=== PATIENT | male | born 1995 | race Caucasian/White ===

== ENCOUNTER 2022-06-13 18:40 | Emergency (ER) | payer OTHER, SELFPAY ==
[2022-06-13 18:51] VITALS: BP 145/92; PULSE 65; RESP 16; TEMP 36.9; O2SAT 99
--- NOTE | 2022-06-13 18:59 | ED.URI ---
HPI - URI/Sore Throat General Chief Complaint: Upper Respiratory Infection Stated Complaint: cough, sinus drainage Time Seen by Provider: 06/13/22 19:00 Source: patient and RN notes reviewed Mode of arrival: ambulatory Limitations: no limitations History of Present Illness HPI Narrative: 26 y/o male with hx diabetes presented for c/o cough for one week. States it is worse at night. Endorses mild nasal congestion and post nasal drainage. Taking Mucinex or Zyrtec for symptoms. Denies sob, wheezing, fever or chills. MD elicited complaint: cough Related Data Home Medications Medication Instructions Recorded Confirmed insulin aspart (niacinamide) 06/13/22 (U-100) 100 unit/mL subcutaneous solution (Fiasp U-100 Insulin) insulin pump cartridge,automated 06/13/22 06/13/22 dose,BT with controller subcutaneous (Omnipod 5 G6 Intro Kit (Gen 5) subcutaneous cartridge with controller) Allergies Allergy/AdvReac Type Severity Reaction Status Date / Time No Known Drug Allergies Allergy Mild Unverified 08/08/16 13:34 Review of Systems Review of Systems: CONSTITUTIONAL:denies malaise, chills, sweats, fever EYES: Denies visual changes, redness, or discharge ENT: per HPI CARDIOVASCULAR: Denies chest pain, palpitations, edema RESPIRATORY: Reports cough, post nasal drainage. Denies dyspnea GASTROINTESTINAL: Denies abdominal pain, nausea, vomiting, diarrhea SKIN: Denies rash MUSCULOSKELETAL: denies myalgia NEUROLOGIC: Denies headache PMFSH Past Medical History Medical History Type 1 diabetes Family History Family History Father Family history of thyroid disease Hypertension Mother Family history of thyroid disease Social History Social History Smoking status: Never smoker Alcohol intake: never Exam Narrative: GENERAL: well-appearing EYES: conjunctivae clear ENT: Mucous membranes moist. TMs pearly omer with light reflex bilaterally; no tragal tenderness. Oropharynx erythematous without lesions or exudate CHEST: Clear to auscultation, breath sounds equal. HEART: Regular rate and rhythm. SKIN: Warm, dry, no rash. NEURO: Alert and oriented x3. Course Course Emergency Course: Patient is aware of diagnosis, understands and agrees to treatment plan. Anticipatory guidance given. Patient agrees to follow-up as directed and is aware of reasons to seek care at the emergency department. Portions of this record may have been created with voice recognition software Level of Care: Express Care Visit Vital Signs Vital signs: Vital Signs Temperature 98.5 F 06/13/22 18:51 Pulse Rate 65 06/13/22 18:51 Respiratory Rate 16 06/13/22 18:51 Blood Pressure 145/92 H 06/13/22 18:51 Pulse Oximetry 99 06/13/22 18:51 Temperature 98.5 F 06/13/22 18:51 Pulse Rate 65 06/13/22 18:51 Respiratory Rate 16 06/13/22 18:51 Blood Pressure 145/92 H 06/13/22 18:51 Pulse Oximetry 99 06/13/22 18:51 reviewed MDM - URI/Sore Throat MDM Narrative Medical decision making narrative: Advised supportive measures and signs/symptoms to go to the ER. Pt is appropriate for outpt treatment and f/u. Differential Diagnosis Differential diagnosis: Likely upper respiratory infection, sinusitis and viral infection Discharge Plan Discharge Clinical Impression: Upper respiratory infection Patient Disposition: Home, Self-Care Condition: Stable Instructions: Sinusitis (ED) Additional Instructions: Recommend Flonase spray, saline spray, and Zyrtec (or Claritin/Mercedes) for sinus congestion over the counter sugar free Cough syrup as needed; it may cause drowsiness, avoid driving or take it at night time. Tylenol 1000mg every 8 hours as needed for pain Symptomatic treatment includes: rest, push fluids, and increase hu
== END 2022-06-13 19:12 | disposition home or self-care (01) ==
PROVIDERS: Emergency Provider Nurse Practitioner Family; PCP Family Medicine
DX: J06.9 Acute upper respiratory infection, unspecified (principal); E10.9 Type 1 diabetes mellitus without complications
CPT/HCPCS: 99211; G0463

== ENCOUNTER 2022-06-24 19:02 | Emergency (ER) | payer OTHER, SELFPAY ==
[2022-06-24 19:17] VITALS: BP 131/97; PULSE 90; RESP 16; TEMP 37.9; O2SAT 99
--- NOTE | 2022-06-24 19:28 | ED.URI ---
HPI - URI/Sore Throat General Chief Complaint: Upper Respiratory Infection Stated Complaint: FEVER/HEADACHE/CONGESITON/BODY ACHES Time Seen by Provider: 06/24/22 19:28 Source: patient Mode of arrival: ambulatory Limitations: no limitations History of Present Illness HPI Narrative: 26-year-old male presents with complaint of fatigue, body aches, fever, and congestion starting today. Reports he has had a cough since June 06. Denies chest pain and shortness of breath. States when he began to feel worse today he was concerned that he may have pneumonia. No history of pneumonia. 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 All systems reviewed and negative except as noted above. Related Data Home Medications Medication Instructions Recorded Confirmed insulin pump cartridge,automated 06/13/22 06/13/22 dose,BT with controller subcutaneous (Omnipod 5 G6 Intro Kit (Gen 5) subcutaneous cartridge with controller) insulin aspart (niacinamide) See Rx Instructions .Route .COMPLEX 06/24/22 06/24/22 (U-100) 100 unit/mL subcutaneous solution (Fiasp U-100 Insulin) Allergies Allergy/AdvReac Type Severity Reaction Status Date / Time No Known Allergies Allergy Verified 06/24/22 19:16 Review of Systems Review of Systems: CONSTITUTIONAL: Reports fever, chills, or sweats. EYES: Denies visual changes, redness, or discharge. ENT: Reports rhinorrhea, congestion, sore throat. Denies otalgia. CARDIOVASCULAR: Denies chest pain, palpitations, or edema. RESPIRATORY: Reports cough. Denies dyspnea. GASTROINTESTINAL: Denies abdominal pain, nausea, vomiting, or diarrhea. GENITOURINARY: Denies dysuria or hematuria. SKIN: Denies rash or itching. MUSCULOSKELETAL: Denies back pain, joint pain, or myalgia. NEUROLOGIC: Denies headache, numbness, or weakness. PSYCHIATRIC: Denies anxiety or depression. All other systems reviewed are negative, except as documented in HPI. [facility] Past Medical History Medical History Type 1 diabetes Family History Family History Father Family history of thyroid disease Hypertension Mother Family history of thyroid disease Social History Social History (Reviewed 06/13/22 @ 19:24 by ROLANDO Talamantes Smoking status: Never smoker Alcohol intake: never Comments At time of signature, agree with nursing past medical, surgical, social and family history. There is no relevant family history pertinent to the presenting complaint. Exam Narrative: GENERAL: This is a well-nourished, well-developed patient, in no apparent distress. HEAD: normocephalic, atraumatic. EYES: PERRL. Sclera clear/white. Vision is grossly intact. EARS: External ears normal, auditory canals clear and without drainage, TMs normal without perforation. Hearing grossly intact. NOSE: External nose normal with clear nasal drainage. THROAT: Mucous membranes moist, erythema posterior pharynx with clear postnasal drainage. NECK: Neck supple, non-tender without lymphadenopathy, masses or thyromegaly. CARDIOVASCULAR: Regular rate and rhythm without murmurs, gallops, or rubs. RESPIRATORY: Clear to auscultation. Breath sounds equal bilaterally. No wheezes, rales, or rhonchi. SKIN: warm, Dry, intact with no suspicious lesions or rash, good texture and turgor. NEURO: awake, alert, and oriented to person, place and time. There were no obvious focal neurologic abnormalities. EXTREMITIES: No joint tenderness, effusion, or edema noted. Course Course Level of Care: Express Care Visit Vital Signs Vital signs: Vital Signs Temperature 37.9 C H 06/24/22 19:17 Pulse Rate 90 06/24/22 19:17 Respiratory Rate 16 06/24/22 19:17 Blood Pressure 131/97 H 06/24/22 19:17 Pulse Oximetry 99 06/24/22 19:17 Temperature 37.9 C H 06/24/22 19:17 Pulse Rate 90 06/24/22 19:17 Re
== END 2022-06-24 19:40 | disposition home or self-care (01) ==
PROVIDERS: Emergency Provider Nurse Practitioner Family; PCP Family Medicine
DX: J10.1 Influenza due to other identified influenza virus with other respiratory manifestations (principal); J40 Bronchitis, not specified as acute or chronic; E10.9 Type 1 diabetes mellitus without complications; Z96.41 Presence of insulin pump (external) (internal)
CPT/HCPCS: 87804; 99213; G0463

== ENCOUNTER 2022-10-06 12:36 | Emergency (ER) | payer OTHER, SELFPAY ==
--- NOTE | 2022-10-06 12:42 | ED.URI ---
HPI - URI/Sore Throat General Chief Complaint: Ear Stated Complaint: COUGH/HEAD PRESSURE/L EAR Time Seen by Provider: 10/06/22 12:53 Source: patient and RN notes reviewed Mode of arrival: ambulatory Limitations: no limitations History of Present Illness HPI Narrative: 26-year-old male presents concern for cough, sinus pressure and left ear pain. Reports several days of symptoms, ear pain started most recently. He reports he taking Mucinex DM and Flonase. MD elicited complaint: cough Related Data Home Medications Medication Instructions Recorded Confirmed insulin pump cartridge,automated 06/13/22 06/13/22 dose,BT with controller subcutaneous (Omnipod 5 G6 Intro Kit (Gen 5) subcutaneous cartridge with controller) insulin aspart (niacinamide) See Rx Instructions .Route .COMPLEX 06/24/22 10/06/22 (U-100) 100 unit/mL subcutaneous solution (Fiasp U-100 Insulin) Allergies Allergy/AdvReac Type Severity Reaction Status Date / Time No Known Allergies Allergy Verified 10/06/22 12:39 Review of Systems Review of Systems: CONSTITUTIONAL: Denies malaise, chills, sweats, or fever. EYES: Denies visual changes, redness, or discharge. ENT: Reports rhinorrhea, congestion, ear pain. Denies sinus pain, otalgia CARDIOVASCULAR: Denies chest pain, palpitations, or edema. RESPIRATORY: Reports cough. Denies dyspnea. GASTROINTESTINAL: Denies abdominal pain, nausea, vomiting, diarrhea SKIN: Denies rash or itching. MUSCULOSKELETAL: Denies myalgia. NEUROLOGIC: Denies headache. All systems reviewed & are unremarkable except as noted in HPI and below PMFSH Past Medical History Medical History Type 1 diabetes Family History Family History Father Family history of thyroid disease Hypertension Mother Family history of thyroid disease Social History Social History Smoking status: Never smoker Alcohol intake: never Comments At time of signature, agree with nursing past medical, surgical, social and family history. There is no relevant family history pertinent to the presenting complaint Exam Narrative: GENERAL: Well-appearing, well-nourished, and in no acute distress. HEAD: Normocephalic EYES: PERRLA, conjunctivae clear ENT: Nares clear, turbinates edematous and erythematous, clear discharge. Mucous membranes moist. Right tM pearly omer with dull light reflex, left TM erythematous and bulging; no tragal tenderness. Oropharynx not erythematous without lesions. Tonsils not enlarged and without exudate, no drooling, no hoarseness, no trismus, uvula midline. NECK: Supple. No lymphadenopathy CHEST: Clear to auscultation, breath sounds equal. No wheezing, rhonchi, rales, or stridor. No respiratory distress, speaks in full sentences. HEART: Regular rate and rhythm. No murmur heard. SKIN: Warm, dry, no rash. NEURO: Alert and oriented x3. PSYCH: Normal mood and affect Course Course Emergency Course: Patient is aware of diagnosis, understands and agrees to treatment plan. Anticipatory guidance given. Patient agrees to follow-up as directed and is aware of reasons to seek care at the emergency department. Portions of this record may have been created with voice recognition software Level of Care: Express Care Visit Vital Signs Vital signs: Reviewed. MDM - URI/Sore Throat MDM Narrative Medical decision making narrative: Differential diagnosis considered: Buenrostro virus, strep pharyngitis, allergic rhinitis, upper respiratory tract infection, sinusitis, rhinosinusitis, nasopharyngitis. viral pharyngitis, otitis media, otitis externa, pneumonia, bronchitis, viral cough syndrome, viral syndrome, and influenza. Exam findings show no acute concerns or changes; patient is non-toxic appearing and is in no distress. Patient is appropriate for outpatient t
[2022-10-06 12:43] VITALS: BP 144/88; PULSE 71; RESP 16; TEMP 36.9; O2SAT 99
== END 2022-10-06 13:00 | disposition home or self-care (01) ==
PROVIDERS: Emergency Provider Nurse Practitioner; PCP Family Medicine
DX: H66.92 Otitis media, unspecified, left ear (principal); E10.9 Type 1 diabetes mellitus without complications
CPT/HCPCS: 99213; G0463

== ENCOUNTER 2025-04-05 13:34 | Outpatient (CLI) | payer OTHER, SELFPAY ==
--- OUTSIDE RECORDS SUMMARY | 2025-04-05 13:46 | XMS_ITS | Clinical Summary ---
Author Organization [facility] Address [address] [place] [address] Care Team Providers Care Logistics Solution Manager Name Role Phone Keo Mcmullen MD Primary Care Provider [phone] Allergies No known active allergies Medications insulin syringe-needle U-100 1 mL 31 gauge x 5/16 syringe Use to administer insulin 4 to 6 times daily 05/24/20 12 Active lancets misc Use as directed to test blood sugars 200 each 09/26/19 20 Active acetone, urine, test strip Use as direct when blood sugar > 250 mg/dl 50 strip 05/01/20 22 Active Afrezza 4 unit/8 unit/ 12 unit (60) cartridge, w/inhalation deviceIndication s:Type 1 diabetes mellitus without complication (HCC) INHALE 16 UNITS BEFORE MEALS, 4 UNITS 2 HOURS AFTER MEALS NEEDED TO CORRECT ELEVATED BLOOD SUGAR MORE THAN 200. TOTAL DAILY DOSE 60 UNITS 720 each 12/27/19 24 Active glucagon (BAQSIMI) 3 mg/actuation spray,non-aeroso lIndications:Typ e 1 diabetes mellitus without complication (HCC) Administer 1 spray (3 mg total) into one nostril daily as needed (as directed for severe low) 2 each 04/10/20 24 Active insulin regular human (Afrezza) 8 unit cartridge, w/inhalation device 8 units 3 times a day with meals . Pt will need 3 boxes of 90 270 each 3 10/09/19 25 Active FreeStyle Test stripIndications :Type 1 diabetes mellitus,Type 1 diabetes mellitus with complication (HCC) TEST BLOOD GLUCOSE FOUR TIMES A DAY 400 strip 2 11/18/19 25 Active insulin regular human (Afrezza) 4 unit cartridge, w/inhalation deviceIndication s:Type 1 diabetes mellitus with complication (HCC) Inhale up to 12 units 3 times a day with meals tdd 36 units. Pt will need 9 boxes of 90 (810 cartridges) 810 each 2 01/13/20 25 Active blood-glucose sensor (Dexcom G7 Sensor) deviceIndication s:Type 1 diabetes mellitus without complication (HCC) Will use 3 sensors per month to check blood sugar continuously. 9 each 01/16/20 25 Active TRESIBA 100 unit/mL (3 mL) pen for injection Inject 22 units once per day. 9 mL 3 02/08/20 25 Active insulin glargine (LANTUS) 100 unit/mL vial for injection Inject 24 Units under the skin nightly Backup insulin for pump failure 10 mL 1 06/24/20 21 023 Discontinued Active Problems Problem Noted Date Diagnosed Date Insulin pump in place 09/04/2022 Vitamin B 12 deficiency 02/15/2019 Type 1 diabetes mellitus 05/22/2009 Encounters Date Type Department Care Team Description 03/19/2025 Orders Only [facility] Medicine Endocrinology Metabolism and Lipid [address] [place] [address] [place] [address] Laurie Price, SANJU Type 1 diabetes mellitus without complication (HCC) (Primary Dx) 03/15/2025 Orders Only [facility] Medicine Endocrinology Metabolism and Lipid [address] [place] [address] [place] [address] Mercy Jean MD Type 1 diabetes mellitus without complication (HCC) (Primary Dx) 03/13/2025 Orders Only [facility] Medicine Endocrinology Metabolism and Lipid [address] [place] [address] [place] [address] Mercy Jean MD 03/05/2025 9:00 AM CDT Office Visit [facility] Medicine Endocrinology Metabolism and Lipid [address] [facility] [address] [place] [address] [place] [address] Mercy Jean MD Type 1 diabetes mellitus without complication (HCC) (Primary Dx); Vitamin D deficiency; Elevated blood pressure reading 02/07/2025 Telephone [facility] Endocrinology Metabolism and Lipid [address] [place] [address] Krystal Best RMA from Last 3 Months Immunizations Immunization Administration Dates Next Due Influenza, Unspecified 05/16/2020 Surgical History Surgery Date Site/Laterality Comments 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 Medical History Medical History Date Comments Diabetes mellitus type I (HCC) Family History Medical History Relation Name Comments Hypertension Father Thyroid disease Father Diabetes Maternal Grandfather Stroke Maternal Grandfather Diabetes Maternal Grandmother Hypertension Mother Thyroid disease Mother Relation Name Status Comments Father Maternal Grandfather Maternal Grandmother Mother Social History Tobacco Use Types Packs/Day Years Used Date Smoking Tobacco: Never Smokeless Tobacco: Never Sex and Gender Information Value Date Recorded Sex Assigned at Not on file Legal Sex Male 2:45 AM [employer] Gender Identity Not on file Sexual Orientation Not on file Occupation Industry Job Start Date Job End Date [employer] Not on file Not on file No t on file Obstetrics History Last Filed Vital Signs Vital Sign Reading Time Taken Comments Blood Pressure 154/88 03/05/2025 8:59 AM CDT Pulse 58 03/05/2025 8:59 AM CDT Temperature 36.8 C (98.3 F) 03/05/2025 8:59 AM CDT Respiratory Rate - - Oxygen Saturation 98% 06/12/2016 9:45 PM CDT Inhaled Oxygen Concentration - - Weight 87.7 kg (193 lb 6.4 oz) 03/05/2025 8:59 A M CDT Height 177.8 cm (5' 10) 03/05/2025 8:59 AM CDT Body Mass Index 27.75 03/05/2025 8:59 AM CDT Plan of Treatment Health Maintenance Due Date Last Done Comments Depression Screening 1997 Hepatitis C Screening 1997 Dilated Eye Exam 12/16/2007 DTaP/Tdap/Td Vaccine (1 - Tdap) 2008 Varicella Vaccines (1 of 2 - 13+ 2-dose series) 2010 Hepatitis B Screening 12/16/2015 Regular Well Visit/Exam 18-64 12/16/2015 Pneumococcal vaccine <65 (1 of 2 - PCV) 2016 HPV Vaccines (1 - 3-dose SCD M series) 2024 Lipid Panel 04/10/2025 04/10/2024, 11/15, 06/18/2021, Additional history exists TSH Level 04/10/2025 04/10/2024, 11/15, 06/18/2021, Additional history exists Influenza Vaccine (#1) 2025 05/16/2020 Hemoglobin A1C 09/05/2025 03/05/2025, 03/0 10/2024, 04/10/2024, Additional history exists Albumin Creatinine Ratio, Urine 10/16/2025 10/16/2024, 04/10/2024, 12/08/2022, Additional history exists Foot Exam 10/16/2025 10/16/2024 eGFR 10/16/2025 10/16/2024, 03/17, 12/08/2022, Additional history exists Procedures Procedure Name Priority Date/Time Associated Diagnosis Comments POCT HEMOGLOBIN A1C Routine 03/05/2025 9 :06 AM CDT Type 1 diabetes mellitus without complication (HCC) POCT GLUCOSE 34384 Routine 03/05/2025 9: 05 AM CDT Type 1 diabetes mellitus without complication (HCC) COMPREHENSIVE METABOLIC PANEL Routine 10/16/2024 3:38 PM [employer] Type 1 diabetes mellitus without complication (HCC) Vitamin B 12 deficiency Vitamin D deficiency ALBUMIN CREATININE RATIO, URINE Routine 10/16/2024 3:38 PM [employer] Type 1 diabetes mellitus without complication (HCC) Vitamin B 12 deficiency Vitamin D deficiency LIPID PANEL Routine 04/10/2024 12:26 PM CDT Type 1 diabetes mellitus without complication (HCC) Vitamin B 12 deficiency THYROID FUNCTION CASCADE Routine 04/10/2024 12:26 PM CDT Type 1 diabetes mellitus without complication (HCC) Vitamin B 12 deficiency from Last 3 Months or Most Recently Relevant to Health Maintenance Results * (ABNORMAL) POCT hemoglobin A1c (03/05/2025 9:06 AM CDT) Pathologist [facility] Hemoglobin A1C, POC 7.1(A) 4.0 - 5.6 % Blood 03/05/2025 9:06 AM CDT us Mercy Jean MD POINT OF CARE TEST ORDERAB LES Final Result * POCT glucose (03/05/2025 9:05 AM CDT) Pathologist [facility] Glucose Blood, POC 66 Normal Fasting 70 - 100, Random <200 mg/dL Blood 03/05/2025 9:05 AM CDT us Mercy Jean MD POINT OF CARE TEST ORDERAB LES Final Result * Albumin Creatinine Ratio, Urine (10/16/2024 3:38 PM [employer]) [facility] Albumin Ur <12.0 mg/L Comment: Interpretive Data No reference range established. Current interpretive data was last revised 2018. Creatinine Ur 79.5 mg/dL [facility] Comment: Interpretive Data No reference range established. Current interpretive data was last revised 2018. Albumin Creatinine Ratio, Ur <15 1 - 29 mg/g [facility] Urine 10/16/2024 3:38 PM [employer] 10/16/2024 7:18 PM [employer] us Mercy Jean MD LAB URINE ORDERABLES Final Result [facility] Department [place] [address] * (ABNORMAL) Comprehensive metabolic panel (10/16/2024 3:38 PM [employer]) [facility] Total Protein 7.5 6.1 - 8.4 g/dL [facility] Albumin 4.5 3.5 - 5.2 g/dL [facility] Calcium 9.4 8.6 - 10.3 mg/dL [facility] BUN 16 7 - 23 mg/dL [facility] Total Bilirubin 0.79 0.20 - 1.40 mg/dL [facility] Alk Phos, Total 99 35 - 129 IU/L [facility] AST (SGOT) 31 11 - 47 IU/L [facility] ALT (SGPT) 20 6 - 53 IU/L [facility] Creatinine 1.13 0.70 - 1.30 mg/dL [facility] Sodium 138 135 - 145 mmol/L [facility] Potassium INTERFERENCE - HEMOLYSIS 3.3 - 5.1 mmol/L [facility] Chloride 100 95 - 107 mmol/L [facility] CO2 Content 28 21 - 29 mmol/L [facility] Glucose 119(H) 64 - 99 mg/dL [facility] Comment: NONFASTING GLUCOSE RANGE = 64-199 mg/dL FASTING GLUCOSE 64 - 99 = NORMAL FASTING GLUCOSE 100 - 125 = IMPAIRED FASTING GLUCOSE FASTING GLUCOSE >=126 = PROVISIONAL DIAGNOSIS OF DIABETES eGFR >90.0 >60.0 mL/min/1 .73 m2 [facility] Blood 10/16/2024 3:38 PM [employer] 10/16/2024 4:16 PM [employer] Narrative [facility] - 10/16/2024 4:51 PM [employer] Specimen Hemolyzed us Mercy Jean MD LAB BLOOD ORDERABLES Final Result [facility] * Thyroid Function [place] (04/10/2024 12:26 PM CDT) TSH 0.540 0.450 - 4.500 uIU/mL [facility] - 01 Comment: No apparent thyroid disorder. Additional testing not indicated. In rare instances, Secondary Hypothyroidism as well as Subclinical Hypothyroidism have been reported in some patients with normal TSH values. Blood 04/10/2024 12:2 6 PM CDT 04/10/2024 Narrative [facility] - 04/11/2024 9:12 AM CDT Performed at: [facility] [id number] Military Technology Manager: Twin Marie PhD, Phone: [phone] Mercy Jean MD LAB BLOOD ORDERABLES Final Result Performing Organization Address [facility] [employer] de Phone Number [facility] - * (ABNORMAL) Lipid panel (04/10/2024 12:26 PM CDT) [facility] Cholesterol 181 100 - 199 mg/dL [facility] - 01 Triglycerides 80 0 - 149 mg/dL [facility] - 01 HDL Cholesterol 52 >39 mg/dL [facility] - 01 VLDL 15 5 - 40 mg/dL [facility] - 01 LDL, calculated 114(H) 0 - 99 mg/dL [facility] - 01 Blood 04/10/2024 12:2 6 PM CDT 04/10/2024 Narrative [facility] - 04/11/2024 8:17 AM CDT Performed at: [address] [id number] Military Technology Manager: Twin Marie PhD, Phone: [phone] Mercy Jean MD LAB BLOOD ORDERABLES Final Result Performing Organization Address [facility] Co de Phone Number [facility] - from Last 3 Months or Most Recently Relevant to Health Maintenance Insurance [employer] H[employer] [facility] CHOICE PLUS Care Teams Logistics Solution Manager Relationship Specialty Start Date End Date Keo Mcumllen MD PCP - General 12/24/16
--- OUTSIDE RECORDS SUMMARY | 2025-04-05 13:46 | XMS_ITS | Clinical Summary ---
Author Organization [facility] Address [address] [place] [id number] Care Team Providers Care Marine Extension Agent Name Role Phone Unavailable Primary Care Provider Unavailabl e Medications insulin lispro (HUMALOG) 100 UNIT/ML injection (VIAL)Indication s:Diabetes (CMS/HCC HHS/HCC) Use up to 80 units per pump 2 vial 08/25/2018 Active Social History Tobacco Use Types Packs/Day Years Used Date Smoking Tobacco: Never Assessed Sex and Gender Information Value Date Recorded Sex Assigned at Male 11/06/2024 12:27 PM CDT Legal Sex Male 9:13 PM CDT Gender Identity Not on file Sexual Orientation Not on file Last Filed Vital Signs Vital Sign Reading Time Taken Comments Blood Pressure 124/68 11/15/2017 10:06 AM CDT Pulse 95 11/15/2017 10:05 AM CDT Temperature - - Respiratory Rate - - Oxygen Saturation - - Inhaled Oxygen Concentration - - Weight 82.6 kg (182 lb 2.1 oz) 11/15/2017 10:05 AM CDT Height 177.8 cm (5' 10) 11/15/2017 10:05 AM CDT Body Mass Index 26.13 11/15/2017 10:05 AM CDT Plan of Treatment Health Maintenance Due Date Last Done Comments Annual Physical 2000 Hepatitis C 12/16/2015 DTaP, Tdap and Td Vaccines ( 1 - Tdap) 2016 Hepatitis B Vaccines (1 of 3 - 19+ 3-dose series) 2016 COVID-19 Vaccine ( - 2023-2 5 season) 2024 03/24/2021, 03/01/2021 HPV Vaccines (1 - 3-dose SCD M series) 2024 Meningococcal B Vaccine Aged Out No l onger eligible based on patient's age to complete this topic Meningococcal Vaccine Aged Out No tommy sofiya eligible based on patient's age to complete this topic Pneumococcal Vaccine: Pediatrics (0 to 5 Years) and At-Risk Patients (6 to 49 Years) Aged Out No longer eligible b ased on patient's age to complete this topic RSV Immunizations Under 20 Months Aged Out No longer eligible b ased on patient's age to complete this topic Insurance [facility]
--- NOTE | 2025-04-05 15:53 | WPDPFTINT ---
PFT Procedure Performed PFT Procedure Performed Flow Vol Loop Spirometry w/o Bronchodil PFT Interpretation This is a pulmonary function test with spirometry. The test was performed and results interpreted in accordance with the 2019 and 2005 ATS/ERS Task Force guidelines respectively using the Global Lung Function Initiative-2012 reference equations. Patient demonstrated good effort and cooperation. Reproducibility criteria were met. The quality of the spirometry maneuver was Grade A. Findings: Spirometry: The contour the inspiratory and expiratory flow tracing are normal. The FVC is 4.71 L, 85% predicted. The FEV1 is 3.59 L, 78% predicted. The FEV1: FVC ratio 76%. Impression: The spirometry is normal without evidence of an obstructive abnormality. A restrictive ventilatory abnormality cannot be excluded as no lung volumes were measured. There are no prior studies for comparison
== END 2025-04-05 13:35 | disposition home or self-care (01) ==
LOC: ANHPFT 13:35
PROVIDERS: PCP Family Medicine
DX: E10.9 Type 1 diabetes mellitus without complications (principal)
CPT/HCPCS: 94375